=== PATIENT | female | born 1960 | race Caucasian/White ===

== ENCOUNTER 2025-02-28 19:26 | Emergency (ER) | payer BC ==
[~2025-02-28] VITALS: Ht 167.6 cm; Wt 63.5 kg
[2025-02-28 19:49] VITALS: BP 155/95
[2025-02-28] MEDS ORDERED: ACETAMINOPHEN 500 MG TABLET ONE (20:17)
[2025-02-28] MEDS: ACETAMINOPHEN 500 MG TABLET PO ONE (20:17)
[2025-02-28 20:23] LABS: PLATELET COUNT (AUTO) 247 K/uL (179-408); RED BLOOD CELL COUNT(AUTO) 3.90 MIL/uL (3.63-4.92); RED CELL DISTRIBUTION WIDTH 15.2 % (12.3-17.7); WHITE BLOOD COUNT (AUTO) 4.9 K/uL (3.8-11.8)
[2025-02-28 20:43] LABS: ASPARTATE AMINOTRANSFERASE 17 U/L (15-37); CREATININE 0.6 mg/dL (0.6-1.3); SODIUM SERUM 143 mmol/L (136-145); TOTAL PROTEIN, SERUM 7.1 g/dL (6.4-8.2); UREA NITROGEN, BLOOD 15 mg/dL (7-18)
[2025-02-28 22:05] VITALS: BP 139/89; TEMP 98; O2SAT 99
== END 2025-02-28 22:06 | disposition home or self-care (01) ==
LOC: ER 19:30
DX: S60.012A Contusion of left thumb without damage to nail, initial encounter (principal); I10 Essential (primary) hypertension; K44.9 Diaphragmatic hernia without obstruction or gangrene; M19.042 Primary osteoarthritis, left hand; R06.02 Shortness of breath; Z88.5 Allergy status to narcotic agent; W01.0XXA Fall on same level from slipping, tripping and stumbling without subsequent striking against object, initial encounter; Y93.89 Activity, other specified; Y92.89 Other specified places as the place of occurrence of the external cause; Y99.9 Unspecified external cause status
CPT/HCPCS: 36415; 70450; 73140; 84484; 85025; 85730; A4606; A4663; A9150